=== PATIENT | female | born 1995 | race Hispanic/Latino ===

== ENCOUNTER 2019-10-09 17:53 | Emergency (ER) | payer OTHER, SELFPAY ==
[2019-10-09 18:35] LABS: Urine Blood 2+ (NEG); Urine Glucose NEGATIVE (NEG); Urine Protein 1+ (NEG); Urine Specific Gravity 1.025 (1.005-1.030); Urine pH 6.5 (5.0-7.0)
[2019-10-09 18:55] LABS: Urine Bacteria >50 /HPF (<20); Urine Culture Reflex Order REFLEXED
[2019-10-09] MEDS ORDERED: ONDANSETRON 4 MG/2 ML VIAL ONE (19:19)
[2019-10-09] MEDS ORDERED: MORPHINE 4 MG/ML SYR ONE (19:19)
[2019-10-09] MEDS ORDERED: NA CHLORIDE 0.9% 1,000 ML ONE ×2 (19:19→21:55)
[2019-10-09 19:25] LABS: Absolute Lymphocytes (CBC) 0.3 K/uL (0.7-4.9); Basophils % 0.2 % (0-1.3); Hematocrit 42.9 % (36.0-45.0); Lymphocytes % 3.9 % (15.3-44.8); MPV 7.9 fL (7.6-11.3)
[2019-10-09 19:43] LABS: ALT/SGPT 21 U/L (12-78); AST/SGOT 17 U/L (15-37); Albumin 4.1 g/dL (3.4-5.0); Alkaline Phosphatase 68 U/L (45-117); BUN Blood Urea Nitrogen 11 mg/dL (7-18); Bicarbonate 24 mmol/L (21-32); Bilirubin Direct 0.2 mg/dL (0-0.2); Bilirubin Total 0.6 mg/dL (0.2-1.0); Glucose Level 92 mg/dL (74-106); Lipase 70 U/L (73-393); Potassium 4.1 mmol/L (3.5-5.1); Sodium Level 137 mmol/L (136-145)
[2019-10-09] MEDS ORDERED: CEFTRIAXONE/SWI 1gm 1 GM/10 ML SYR ONE (19:56)
--- NOTE | 2019-10-09 20:12 | RAD REPORT ---
EXAM DESCRIPTION: CT - Abdomen Pelvis W Contrast - 10/09/2019 8:05 pm CLINICAL HISTORY: FLANK PAIN, left side COMPARISON: Abdomen Pelvis W Contrast dated 10/21/2017 TECHNIQUE: Biphasic, helical CT imaging of the abdomen and pelvis was performed following 100 ml non -ionic IV contrast. Oral contrast was given. All CT scans are performed using dose optimization technique as appropriate and may include automated exposure control or mA/KV adjustment according to patient size. FINDINGS: No suspicious findings in the lung bases. The liver, spleen, and pancreas show no suspicious findings. Gallbladder and biliary tree are also wi thout suspicious finding. Heterogeneous enhancement of the left renal parenchyma present. No abscess or perinephric abnormality . No urinary bladder wall mass. Guillaume the bladder are relatively thick for the amount of distention. No solid mass lesion. No adrenal abnormalities. Uterus and ovaries show no suspicious findings. No dilated bowel loops or bowel wall thickening. Appendix is not clearly defined. Appendicitis is not suspected. No free air, free fluid or inflammatory stranding. No hernia, mass or bulky lymphadenopa thy. No suspicious bony findings. IMPRESSION: Left-sided pyelonephritis without abscess or other complicating factor. Suspected cystitis.
[2019-10-09 20:27] LABS: Blood Morphology Comment NOT SEEN (NOT SEEN); Platelet Estimate ADEQ
[2019-10-09] MEDS ORDERED: levoFLOXacin 750 MG TAB ONE (20:53)
--- NOTE | 2019-10-09 20:56 | EDPHYS ---
Physician Documentation [facility] Name: Malissa Felix Age: 23 yrs Sex: Female : 1995 Arrival Date: 10/09/2019 Time: 17:54 Bed 25 Private MD: ED Physician Iglesia Vazquez HPI: 10/09 19:31 This 23 yrs old Female presents to ER via Ambulatory with complaints of pm1 Vomiting, Abdominal Pain, Flank Pain. 19:31 The patient complains of pain in the left low back. The pain does not radiate. Onset: pm1 The symptoms/episode began/occurred 3 day(s) ago. Modifying factors: The symptoms are alleviated by OTC meds, the symptoms are aggravated by movement. Associated signs and symptoms: Pertinent positives: nausea, vomiting, urgency, Pertinent negatives: diarrhea, fever, urinary frequency. Severity of pain: in the emergency department the pain is actually worse. The patient has not experienced similar symptoms in the past. It is unknown whether or not the patient has recently seen a physician. Patient onset of left flank pain on . Pain resolved with NSAIDs at that time. On Thursday pain with movement and bumps on the road while riding in the car. Yesterday she started having some nausea and vomiting. No diarrhea. Historical: - Allergies: 18:21 Amoxicillin; dm5 - PMHx: 18:21 Asthma; dm5 - PSHx: 18:21 None; dm5 - Immunization history:: Adult Immunizations up to date. - Ebola Screening: : Patient denies travel to an Ebola-affected area in the 21 days before illness onset. ROS: 19:31 Constitutional: Negative for fever, chills, and weight loss, Eyes: Negative for injury, pm1 pain, redness, and discharge, ENT: Negative for injury, pain, and discharge, Neck: Negative for injury, pain, and swelling, Cardiovascular: Negative for chest pain, palpitations, and edema, Respiratory: Negative for shortness of breath, cough, wheezing, and pleuritic chest pain. 19:31 MS/Extremity: Negative for injury and deformity, Skin: Negative for injury, rash, and discoloration, Neuro: Negative for headache, weakness, numbness, tingling, and seizure. 19:31 Abdomen/GI: Positive for abdominal pain, nausea and vomiting, of the left lower quadrant, Negative for diarrhea, constipation. 19:31 Back: Positive for flank pain, on the left. 19:31 : Positive for urgency, Negative for urinary frequency, small amounts, hematuria, burning with urination, difficulty urinating. Exam: 19:31 Constitutional: This is a well developed, well nourished patient who is awake, alert, pm1 and in no acute distress. Head/Face: Normocephalic, atraumatic. Neck: Trachea midline, no thyromegaly or masses palpated, and no cervical lymphadenopathy. Supple, full range of motion without nuchal rigidity, or vertebral point tenderness. No Meningismus. Chest/axilla: Normal chest wall appearance and motion. Nontender with no deformity. No lesions are appreciated. Cardiovascular: Regular rate and rhythm with a normal S1 and S2. No gallops, murmurs, or rubs. Normal PMI, no JVD. No pulse deficits. Respiratory: Lungs have equal breath sounds bilaterally, clear to auscultation and percussion. No rales, rhonchi or wheezes noted. No increased work of breathing, no retractions or nasal flaring. 19:31 Skin: Warm, dry with normal turgor. Normal color with no rashes, no lesions, and no evidence of cellulitis. MS/ Extremity: Pulses equal, no cyanosis. Neurovascular intact. Full, normal range of motion. 19:31 Abdomen/GI: Inspection: abdomen appears normal, Palpation: soft, in all quadrants, mild abdominal tenderness, in the left lower quadrant, mass, is not appreciated, rebound tenderness, is not appreciated. 19:31 Back: pain, that is mild, of the left low back, normal spinal alignment noted. 19:31 Neuro: Orientation: is normal, Motor: is normal, moves all fours. Vital Signs: 18:21 BP 121 / 67; Pulse 98; Resp 24; Temp 99.2(O); Pulse Ox 100% on R/A; Weight 54.57 kg; dm5 20:26 BP 123 / 79; Pulse 112; Resp 20; Pulse Ox 100% on R/A; aj1 21:45 BP 117 / 73; Pulse 119; Resp 20; Pulse Ox 100% on R/A; aj1 22:42 Pulse 114; Temp 103.2(O); Pulse Ox 100% ; lt1 MDM: 18:10 Patient medically screened. pm1 19:36 Data reviewed: vital signs. Data interpreted: Pulse oximetry: on room air is 100 %. pm1 Interpretation: normal. 20:32 Counseling: I had a detailed discussion with the patient and/or guardian regarding: the pm1 historical points, exam findings, and any diagnostic results supporting the discharge/admit diagnosis, lab results, radiology results, the need for outpatient follow up, to return to the emergency department if symptoms worsen or persist or if there are any questions or concerns that arise at home. 10/09 18:26 Order name: Urine Microscopic Only; Complete Time: 19:26 pm1 10/09 18:31 Order name: Urine Dipstick--Ancillary (enter results); Complete Time: 18:45 eb 10/09 18:31 Order name: Urine --Ancillary (enter results); Complete Time: 18:45 eb 10/09 18:46 Order name: Basic Metabolic Panel; Complete Time: 19:49 pm1 10/09 18:46 Order name: CBC with Diff; Complete Time: 20:32 pm1 10/09 18:46 Order name: Creatinine for Radiology; Complete Time: 19:49 pm1 10/09 18:46 Order name: Hepatic Function; Complete Time: 19:49 pm1 10/09 18:46 Order name: Lipase; Complete Time: 19:49 pm1 10/09 18:46 Order name: CT Abd/Pelvis - IV Contrast Only; Complete Time: 20:32 pm1 10/09 18:56 Order name: Urine Culture EDID 10/09 20:27 Order name: Manual Differential; Complete Time: 20:32 EDID 10/09 18:26 Order name: Urine Dipstick-Ancillary (obtain specimen); Complete Time: 18:38 pm1 10/09 18:26 Order name: Urine Test (obtain specimen); Complete Time: 18:38 pm1 10/09 18:46 Order name: IV Saline Lock; Complete Time: 19:14 pm1 10/09 18:46 Order name: Labs collected and sent; Complete Time: 19:14 pm1 10/09 20:32 Order name: PO challenge; Complete Time: 20:49 pm1 Administered Medications: 19:24 Drug: morphine 4 mg Route: IVP; Site: left antecubital; aj1 20:49 Follow up: Response: No adverse reaction; RASS: Alert and Calm (0) aj1 19:24 Drug: Zofran 4 mg Route: IVP; Site: left antecubital; 20:49 Follow up: Response: No adverse reaction 19:25 Drug: NS 0.9% 1000 ml Route: IV; Rate: 1000 ml; Site: left antecubital; 20:49 Follow up: IV Status: Completed infusion; IV Intake: 1000ml :56 Drug: Rocephin 1 grams Route: IV; Rate: calculated rate; Site: left antecubital; 20:00 Follow up: IV Status: Completed infusion; IV Intake: 10ml :52 Drug: LevaQUIN 750 mg Route: PO; :56 Follow up: Response: No adverse reaction :54 Drug: NS 0.9% 1000 ml Route: IV; Rate: bolus; Site: left antecubital; :54 Follow up: IV Status: Completed infusion; IV Intake: 1000ml :54 Drug: Motrin 600 mg Route: PO; :54 Follow up: Response: No adverse reaction aj1 Disposition: 10/10 15:48 Co-signature as Attending Physician, Iglesia Vazquez MD. nj2 Disposition: 10/09/19 20:54 Discharged to Home. Impression: Pyelonephritis, Cystitis, unspecified. - Condition is Stable. - Discharge Instructions: Pyelonephritis, Adult, Urinary Tract Infection, Adult. - Prescriptions for Levaquin 750 mg Oral Tablet - take 1 tablet by ORAL route once daily for 7 days; 7 tablet. Tylenol- Codeine #3 300-30 mg Oral Tablet - take 2 tablets by ORAL route every 6 hours As needed; 20 tablet. Zofran 4 mg Oral Tablet - take 1 tablet by ORAL route every 12 hours As needed; 20 tablet. - Work release form, Medication Reconciliation Form, Thank You Letter, Antibiotic Education, Prescription Opioid Use form. - Follow up: Emergency Department; When: As needed; Reason: Worsening of condition. Follow up: Private Physician; When: 2 - 3 days; Reason: Recheck today's complaints, Continuance of care, Re-evaluation by your physician. - Problem is new. - Symptoms have improved. Signatures: Dispatcher [employer] EDMS Ritesh, Martha, RN RN aj1 Angle Morejon RN RN dm5 Herbert August, BRIDGE BUILDER BRIDGE BUILDER pm1 Iglesia Vazquez MD MD ma2 Corrections: (The following items were deleted from the chart) 10/09 22:56 20:54 10/09/2019 20:54 Discharged to Home. Impression: PyelonephritisCystitis, aj1 unspecified. Condition is Stable. Forms are Medication Reconciliation Form, Thank You Letter, Antibiotic Education, Prescription Opioid Use. Follow up: Emergency Department; When: As needed; Reason: Worsening of condition. Follow up: Private Physician; When: 2 - 3 days; Reason: Recheck today's complaints, Continuance of care, Re-evaluation by your physician. Problem is new. Symptoms have improved. pm1
--- NOTE | 2019-10-09 20:56 | ER ---
Nurse's Notes [facility] Name: Malissa Felix Age: 23 yrs Sex: Female : 1995 Arrival Date: 10/09/2019 Time: 17:54 Bed 25 Private MD: Diagnosis: Cystitis, unspecified;Pyelonephritis Presentation: 10/09 18:18 Presenting complaint: Patient states: had a UTI 4 months ago. Reports pain in left dm5 flank that started a few days ago, worse yesterday, turbulence on flight today was painful. Pt reports urinary urgency but no burning with urination. Transition of care: patient was not received from another setting of care. Care prior to arrival: None. 18:18 Method Of Arrival: Ambulatory dm5 18:18 Acuity: RUSTY 3 dm5 20:26 Onset of symptoms was 2019. Risk Assessment: Do you want to hurt yourself or someone aj1 else? Patient reports no desire to harm self or others. Initial Sepsis Screen: Does the patient meet any 2 criteria? No. Patient's initial sepsis screen is negative. Does the patient have a suspected source of infection? No. Patient's initial sepsis screen is negative. Historical: - Allergies: 18:21 Amoxicillin; dm5 - PMHx: 18:21 Asthma; dm5 - PSHx: 18:21 None; dm5 - Immunization history:: Adult Immunizations up to date. - Ebola Screening: : Patient denies travel to an Ebola-affected area in the 21 days before illness onset. Screenin:26 Abuse screen: Denies threats or abuse. Denies injuries from another. Nutritional aj1 screening: No deficits noted. Tuberculosis screening: No symptoms or risk factors identified. Fall Risk None identified. Assessment: 19:29 General: Appears in no apparent distress. uncomfortable, Behavior is calm, cooperative, aj1 appropriate for age. Pain: Complains of pain in left low back Pain radiates to left lower quadrant. Neuro: Level of Consciousness is awake, alert, obeys commands, Oriented to person, place, time, situation. Cardiovascular: Patient's skin is warm and dry. Respiratory: Airway is patent Respiratory effort is even, unlabored, Respiratory pattern is regular, symmetrical. GI: Abdomen is flat, non-distended. : Reports urinary frequency, Denies burning with urination. EENT: No signs and/or symptoms were reported regarding the EENT system. Derm: No signs and/or symptoms reported regarding the dermatologic system. Skin is pink, warm \T\ dry. normal. Musculoskeletal: No signs and/or symptoms reported regarding the musculoskeletal system. Circulation, motion, and sensation intact. 20:25 Reassessment: Patient appears in no apparent distress at this time. No changes from aj1 previously documented assessment. Patient and/or family updated on plan of care and expected duration. Pain level reassessed. Patient is alert, oriented x 3, equal unlabored respirations, skin warm/dry/pink. 21:30 Reassessment: Patient appears in no apparent distress at this time. No changes from aj1 previously documented assessment. Patient and/or family updated on plan of care and expected duration. Pain level reassessed. Patient is alert, oriented x 3, equal unlabored respirations, skin warm/dry/pink. 21:58 Reassessment: Patient discharge pending completion of IV fluids. aj1 22:55 Reassessment: Patient appears in no apparent distress at this time. No changes from aj1 previously documented assessment. Patient and/or family updated on plan of care and expected duration. Pain level reassessed. Patient is alert, oriented x 3, equal unlabored respirations, skin warm/dry/pink. Vital Signs: 18:21 BP 121 / 67; Pulse 98; Resp 24; Temp 99.2(O); Pulse Ox 100% on R/A; Weight 54.57 kg; dm5 20:26 BP 123 / 79; Pulse 112; Resp 20; Pulse Ox 100% on R/A; aj1 21:45 BP 117 / 73; Pulse 119; Resp 20; Pulse Ox 100% on R/A; aj1 22:42 Pulse 114; Temp 103.2(O); Pulse Ox 100% ; lt1 ED Course: 17:54 Patient arrived in ED. rg4 18:09 Herbert August NP is PHCP. pm1 18:09 Iglesia Vazquez MD is Attending Physician. pm1 18:20 Triage completed. dm5 18:21 Arm band placed on right wrist. Patient placed in an exam room. dm5 18:29 Martha Awad RN is Primary Nurse. aj1 19:12 Initial lab(s) drawn, by me, sent to lab. Inserted saline lock: 20 gauge in left lt1 antecubital area, using aseptic technique. 19:14 Radiology exam delayed due to lab results not completed at this time. (BUN/Creatinine). mw3 20:05 CT completed. Patient tolerated procedure well. Patient moved back from CT. mw3 20:05 CT Abd/Pelvis - IV Contrast Only In Process Unspecified. EDMS 20:26 No provider procedures requiring assistance completed. aj1 20:27 Patient has correct armband on for positive identification. aj1 22:55 IV discontinued, intact, bleeding controlled, No redness/swelling at site. Pressure aj1 dressing applied. Administered Medications: 19:24 Drug: morphine 4 mg Route: IVP; Site: left antecubital; aj1 20:49 Follow up: Response: No adverse reaction; RASS: Alert and Calm (0) aj1 19:24 Drug: Zofran 4 mg Route: IVP; Site: left antecubital; aj1 20:49 Follow up: Response: No adverse reaction aj1 19:25 Drug: NS 0.9% 1000 ml Route: IV; Rate: 1000 ml; Site: left antecubital; aj1 20:49 Follow up: IV Status: Completed infusion; IV Intake: 1000ml aj1 19:56 Drug: Rocephin 1 grams Route: IV; Rate: calculated rate; Site: left antecubital; aj1 20:00 Follow up: IV Status: Completed infusion; IV Intake: 10ml aj1 20:52 Drug: LevaQUIN 750 mg Route: PO; aj1 21:56 Follow up: Response: No adverse reaction aj1 21:54 Drug: NS 0.9% 1000 ml Route: IV; Rate: bolus; Site: left antecubital; aj1 22:54 Follow up: IV Status: Completed infusion; IV Intake: 1000ml aj1 22:54 Drug: Motrin 600 mg Route: PO; aj1 22:54 Follow up: Response: No adverse reaction aj1 Intake: 20:00 IV: 10ml; Total: 10ml. aj 20:49 IV: 1000ml; Total: 1010ml. aj1 22:54 IV: 1000ml; Total: 2010ml. aj1 Outcome: 20:54 Discharge ordered by MD. pm1 22:56 Discharged to home ambulatory. aj1 22:56 Condition: good 22:56 Discharge instructions given to patient, Instructed on discharge instructions, follow up and referral plans. no drinking with medication, no driving heavy equipment, medication usage, Demonstrated understanding of instructions, follow-up care, medications, Prescriptions given X 3. 22:56 Patient left the ED. aj1 Addendum: 10/12/2019 08:04 Addendum: Culture Results: Positive urine culture. No further action required. Bacteria i w sensitive to prescribed antibiotic. Signatures: Dispatcher [employer] EDMartha Carlisle RN RN aj1 Angle Morejon, BREANNE RN dm5 Quyen Jain RN RN iw Herbert August NP INDUSTRIAL NURSE pm1 Damari Soto rg4 Penelope Tierney mw3 Gloria Conner 1
[2019-10-09] MEDS ORDERED: IBUPROFEN 200 MG TAB PO ONE (22:45)
[2019-10-09 23:37] VITALS: O2SAT 100
[2019-10-09 23:39] VITALS: BP 117/73
[2019-10-09 23:40] VITALS: TEMP 103.2
== END 2019-10-09 22:56 | disposition home or self-care (01) ==
LOC: ER 17:53
DX: N12 Tubulo-interstitial nephritis, not specified as acute or chronic (principal); N30.90 Cystitis, unspecified without hematuria; Z88.1 Allergy status to other antibiotic agents
CPT/HCPCS: 96361; 87088; 85025; 87086; 80048; 36415; 81025; 80076; 87077; 87186; 83690; 74177; 96375; 96374; 99284; Q9967; J0696; J7030 ×2; J2405; 81003; 81015